=== PATIENT | female | born 1980 | race Caucasian/White ===

== ENCOUNTER 2016-12-16 23:47 | Emergency (ER) | payer OTHER ==
[~2016-12-16] VITALS: Ht 165.1 cm; Wt 102.7 kg
[~2016-12-16 23:47] MED LIST: PREN1TAB52 PO
[2016-12-17] MEDS: KETOROLAC TROMETHAMINE 30 MG/ML VIAL IM ONE (02:27)
[2016-12-17 03:20] VITALS: BP 118/78
== END 2016-12-17 03:42 | disposition home or self-care (01) ==
LOC: EMS 23:54
DX: S09.90XA Unspecified injury of head, initial encounter (principal); W22.8XXA Striking against or struck by other objects, initial encounter; Y93.89 Activity, other specified; Y92.89 Other specified places as the place of occurrence of the external cause; Y99.8 Other external cause status
CPT/HCPCS: 70450; 96372; 99284; J1885